=== PATIENT | male | born 1975 | race Caucasian/White ===

== ENCOUNTER 2023-04-21 17:28 | Emergency (ER) | payer BC, SELFPAY ==
--- NOTE | ~2023-04-21 | XR_ITS ---
EXAMINATION: XR ankle LT min 3V DATE: 04/21/2023 20:57 INDICATION: Left ankle pain TECHNIQUE: Anteroposterior, lateral, mortise, and additional oblique view of the ankle were obtained. COMPARISON: None. FINDINGS: Bone alignment is normal. There is no fracture. There is mild lateral soft tissue swelling of ankle unclear etiology. IMPRESSION: 1. No acute osseous abnormality. Mild lateral soft tissue swelling of ankle unclear etiology. Reviewed, dictated and finalized at location F. A ARTIST IMPRESSION: 1. No acute osseous abnormality. Mild lateral soft tissue swelling of ankle unc lear etiology.
[2023-04-21 17:36] VITALS: BP 195/118; PULSE 87; RESP 16; TEMP 37; O2SAT 100
--- NOTE | 2023-04-21 20:32 | ED.EXTPRO ---
HPI - Extremity Problem General Chief complaint: Extremity Problem,Nontraumatic Stated complaint: left ankle pain Time Seen by Provider: 04/21/23 20:08 Source: patient and family Limitations: no limitations History of Present Illness HPI Narrative: Patient is a 48-year-old male presents to the emergency department accompanied by his for left ankle pain. Patient states around 3-330 p.m. today while at work sitting down he noticed pain in his left ankle that is dull, located over the lateral aspect in which she points to the inferior posterior lateral malleoli, tried Aleve around 4:00 p.m., feels like it is progressively worsening and is becoming more hard to bear weight on it and bearing weight makes the pain worse, denies radiation of the pain, admits to history of this pain 1 time in the past in which she had the same type of pain 1 week ago that spontaneously resolved within the same day that it started. Patient denies any history of injuries to this region missed denies any recent strenuous activity. Patient denies any recent illness, fever, urinary discomfort, rash, sick contacts, numbness, weakness, history of blood clots, history of heart disease or vascular disease. Related Data Allergies Allergy/AdvReac Type Severity Reaction Status Date / Time No Known Allergies Allergy Verified 04/21/23 17:29 Review of Systems Review of Systems: A 10 system review of systems was completed on the patient and is negative except for what is stated in the HPI. Nursing and ancillary documentation was reviewed. [facility] Social History Social History Smoking status: Never smoker Comments At time of signature, I have reviewed and agree with nursing past medical, surgical, social and family history unless otherwise noted. Please see the nursing chart for further information. There is no relevant family history pertinent to the presenting complaint. Exam Narrative: CONST: No acute distress. Well nourished. HENMT: Head is normocephalic and atraumatic. Moist mucous membranes. No posterior oropharynx erythema. EYES: No conjunctival icterus, injection, or pallor. PERRL. NECK: No meningeal signs. RESP: Able to speak in full sentences. Normal respiratory effort. CTAB. CARDIO: Regular rate. Regular rhythm. 2+ DP and radial pulses bilaterally. GI: Nondistended. No tenderness to palpation. Soft. SKIN: No rashes or lesions noted on exposed skin. NEURO: Oriented x3. Moves all extremities. EXTREM/MSK/BACK: No pedal edema. Mild tenderness to palpation over the left lateral posterior malleoli with a small overlying area of erythema approximately 1 cm x 1 cm with dry scaling skin overlying without any significant warmth, no fluctuance, no crepitus. There is mild swelling to the left lateral malleoli. No left ankle joint space effusion. No other bony tenderness to palpation of the left lower extremity. No pitting edema of the left lower extremity. Patient is able to wiggle all his toes, has active range of motion of the ankle and eversion and inversion and plantar flexion and dorsiflexion intact however it is mildly uncomfortable for the patient to perform all these range of motions but most uncomfortable with inversion. Compartments are soft throughout the left lower extremity. Capillary refill is less than 3 seconds in bilateral lower extremities without asymmetry. 2+ DP and PT pulses bilaterally. Achilles tendons are intact bilaterally and without swelling. No color difference between the bilateral lower extremities or temperature differences. PSYCH: Normal affect. Course Vital Signs Vital signs: Vital Signs Temperature 98.6 F 04/21/23 17:36 Pulse Rate 87 04/21/23 17:36 Respiratory Rate 16 04/21/23 17:36 Blood Pressure 195/118 H 04/21/23 17:36 Pulse Oximetry 100 04/21/23 17:36 Oxygen Delivery Room Air 04/21/23 17:36 Temperature 98.6 F 04/21/23 17:36
[2023-04-21] MEDS: HYDROcodone/acetaminophen (*CRX) 5-325 MG TABLET 1 TAB PO (21:06)
[2023-04-21 21:28] LABS: Basophils Percent Auto 0.5 % (0.2-1.2); Eosinophils Absolute Auto 0.1 K/mm3 (0-0.3); Eosinophils Percent Auto 1.2 % (0-4.4); Hematocrit 44.8 % (42.0-52.0); Hemoglobin 14.4 g/dL (14.0-18.0); Immature Granulocyte Absolute 0.03 K/mm3 (0.00-0.031); Immature Granulocyte Percent A 0.4 % (0-0.5); Lymphocytes Absolute Auto 1.96 K/mm3 (0.9-3.2); Lymphocytes Percent Auto 23.7 % (18.3-44.2); Mean Corpuscular HGB Conc 32.1 g/dl (32-36); Mean Corpuscular Hemoglobin 28.9 pg (26-34); Mean Platelet Volume 10.9 fl (7.4-10.4); Monocytes Absolute Auto 0.5 K/mm3 (0.1-0.6); Monocytes Percent Auto 5.9 % (2.6-8.5); Neutrophils Absolute Auto 5.7 K/mm3 (1.3-6.7); Neutrophils Percent Auto 68.3 % (45.5-73.1); Platelet Count Result 282 k/mm3 (150-375); Red Blood Count 4.98 M/mm3 (4.6-6.20); Red Cell Distribution Width 11.9 % (11.5-14.5); White Blood Count 8.3 K/mm3 (4.5-10.0)
[2023-04-21 21:39] LABS: Alanine Aminotransferase 48 U/L (6-50); Albumin Level 4.7 g/dL (3.5-5.1); Alkaline Phosphatase 88 U/L (38-126); Anion Gap 8 mmol/L (8-16); Aspartate Amino Transferase 40 U/L (17-59); Bilirubin,Total 0.5 mg/dL (0.2-1.3); Blood Urea Nitrogen 22 mg/dL (9-20); CRP < 0.5 mg/dL (<1.0); Calcium 9.7 mg/dL (8.4-10.2); Carbon Dioxide 30 mmol/L (22-30); Chloride 103 mmol/L (98-107); Creatine Kinase 98 U/L (55-170); Estimated CRCL calculation 98 ml/min; Estimated Glomerular Filt Rate > 60; Glucose 94 mg/dL (65-110); Potassium 4.5 mmol/L (3.4-5.0); Prothrombin Time 13.4 Seconds (11.1-14.7); Sodium 141 mmol/L (137-145)
[2023-04-21 21:40] LABS: Partial Thromboplastin Time 38.7 SECONDS (22.3-36.8)
[2023-04-21 21:45] LABS: D Dimer 0.31 ug/mL (<0.48)
[2023-04-21 22:06] LABS: Erythrocyte Sedimentation Rate 4 mm/hr (0-20)
[2023-04-21 23:46] VITALS: BP 158/94; PULSE 86; RESP 16; O2SAT 100
== END 2023-04-21 23:47 | disposition home or self-care (01) ==
PROVIDERS: Emergency Provider Student in an Organized Health Care Education/Training Program; PCP Family Medicine
DX: M25.572 Pain in left ankle and joints of left foot (principal)
CPT/HCPCS: 36415; 73610; 80053; 82550; 85025; 85380; 85610; 85652; 85730; 86140; 99283; A9270

== ENCOUNTER 2024-07-07 19:52 | Emergency (ER) | payer BC, SELFPAY ==
--- NOTE | ~2024-07-07 | XR_ITS ---
PA, oblique, and lateral views of the left fourth finger CLINICAL HISTORY: Post reduction COMPARISON: 07/07/2024 at 8:19 PM FINDINGS: Previously noted dislocation of the fourth PIP joint has been successfully reduced. Osseous alignment is anatomic. No fracture or dislocation seen currently. Joint spaces are intact. Soft tiss ues are unremarkable. IMPRESSION: Successful reduction of previously noted fourth PIP joint dislocation. No fracture or dislocation see n currently. Reviewed, dictated and finalized at location M. IMPRESSION: Successful reduction of previously noted fourth PIP joint dislocation. No fract ure or dislocation seen currently.
--- NOTE | ~2024-07-07 | XR_ITS ---
Left Hand Technique: PA, oblique, and lateral views were obtained. Clinical History: Fourth digit pain Findings: There is dorsal dislocation at the fourth PIP joint. No other fracture or dislocation seen. Soft tissues are unremarkable. Impression: Dorsal dislocation of the fourth PIP joint, with mild overriding. Reviewed, dictated and finalized at location . Impression: Dorsal dislocation of the fourth PIP joint, with mild overriding.
[2024-07-07 20:03] VITALS: BP 185/100; PULSE 104; RESP 17; TEMP 36.7; O2SAT 100
[2024-07-07] MEDS: HYDROcodone/acetaminophen (*CRX) 5-325 MG TABLET 1 TAB PO (20:32)
--- NOTE | 2024-07-07 20:32 | ED_ITS ---
HPI - Trauma General Chief Complaint: Extremity Injury, Upper Stated Complaint: left hand ring finger injury Time Seen by Provider: 07/07/24 20:07 Source: patient Mode of arrival: ambulatory Limitations: no limitations History of Present Illness HPI narrative: This is a 49-year-old male who presents to the ED for chief complaint of left ring finger pain due to injury tonight while playing basketball. Patient states that he went up to get the ball and accidentally jammed his finger on another player's arm. States that he had immediate sensation of dislocation to the left ring finger. Denies any further injury. Related Data Allergies Allergy/AdvReac Type Severity Reaction Status Date / Time No Known Allergies Allergy Verified 07/07/24 20:15 Review of Systems Review of Systems: All systems as dictated in [facility] Surgical History Surgical History H/O knee surgery Family History Family History Grandparent Diabetes mellitus Heart disease Family history of cancer Father Heart disease Social History Social History Smoking status: Never smoker Alcohol intake: current Alcohol use details: rare alcohol intake Substance use: never Do You Feel Safe in your Home?: Yes Lack of Transportation: No Lack of Food: Never True Current Housing: I Have Housing Difficulty Paying Gas/Electric Bills: No Difficulty Paying for Meds: No Currently Unemployed: YES Education: Master's Degree or Higher Living arrangements: with family Occupation/Education: occupation 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 MSK: R UE: Benign LUE: Deformity to the left ring finger PIP joint. Tenderness to the joint. Va scularly intact distally. SKIN: Warm, dry, no rash. NEURO: Alert and oriented x4. No focal deficits. PSYCH: Normal mood and affect. Course Vital Signs Vital signs: Vital Signs Temperature 98.1 F 07/07/24 20:03 Pulse Rate 104 H 07/07/24 20:03 Respiratory Rate 17 07/07/24 20:03 Blood Pressure 185/100 H 07/07/24 20:03 Pulse Oximetry 100 07/07/24 20:03 Oxygen Delivery Room Air 07/07/24 20:03 Temperature 97 F L 07/07/24 21:25 Pulse Rate 90 07/07/24 21:25 Respiratory Rate 18 07/07/24 21:25 Blood Pressure 143/107 H 07/07/24 21:25 Pulse Oximetry 100 07/07/24 21:25 Oxygen Delivery Room Air 07/07/24 20:03 Procedures Orthopedic Joint Reduction Joint #1: Orthopedic Joint Reduction Date: 07/07/24 Orthopedic Joint Reduction Time: 20:33 Time Out Performed: No Side: left Joint Reduction Location: finger Analgesia: none Pre-Procedure Neuro Vascular Exam: normal Local Anesthesia: none Technique used: traction/counter-traction Post-reduction neuro exam: intact Post-reduction vascular: intact Post Reduction X-Ray Obtained: Yes Post Reduction X-Ray Results: reduced Splint Applied: Yes Patient Tolerated Procedure: well MDM - Trauma MDM Narrative Medical decision making narrative: This is a 41-year-old male who presents to the ED for chief complaint of left ring finger injury while playing basketball this evening. Vitals show elevated heart rate and blood pressure on arrival, consistent with acute pain. Exam remarkable for left ring finger dislocation. X-rays confirm dislocation. The finger was easily reduced with traction counter traction and he was placed in a finger splint. Repeat x-rays confirmed reduction. Patient will be discharged in stable condition. Supportive measures discussed and return precautions given. Patient is understanding and agreeable with plan for discharge with Hand surgery follow-up. Discharge Plan Discharge Clinical Impression: Dislocation of finger Patient Disposition: Home, Self-Care Condition: Stable Instructions: Antibiotic Form Additional Instructions: Exam and imaging today show dislocation of the finger. He was successfully reduced in the ER. Please follow-up with hand surgeon for recheck of the finger joint. Continue with splint immobilization for the next 2 weeks. Use Tylenol 500 mg and ibuprofen 600 mg every 6 hours as needed for pain control. If you have any new or worsening symptoms please return to the ER for further evaluation. Patient Language: Yi Prescriptions: No Action acetaminophen 500 mg tablet 500 mg PO Q6H PRN (Reason: pain) Qty: 30 0RF ibuprofen 400 mg tablet 400 mg PO Q6H PRN (Reason: pain) Qty: 30 0RF Follow-up/Referrals: Tamiko Aquino MD [Physician] - Roselyn Palomo [facility] [Primary Care Provider] - Time of Disposition: 20:40
[2024-07-07 21:25] VITALS: BP 143/107; PULSE 90; RESP 18; TEMP 36.1; O2SAT 100
== END 2024-07-07 21:25 | disposition home or self-care (01) ==
PROVIDERS: Emergency Provider Physician Assistant; PCP Nurse Practitioner
DX: S63.285A Dislocation of proximal interphalangeal joint of left ring finger, initial encounter (principal); W51.XXXA Accidental striking against or bumped into by another person, initial encounter; Y93.67 Activity, basketball
CPT/HCPCS: 26770; 73130; 73140; 99285; A9270